=== PATIENT | female | born 1960 | race Two or more races ===

== ENCOUNTER 2024-09-04 15:28 | Emergency (ER) | payer BC ==
[~2024-09-04] VITALS: Ht 165.1 cm; Wt 104.3 kg
== END 2024-09-04 19:55 | disposition home or self-care (01) ==
LOC: ER 15:30
DX: S82.491A Other fracture of shaft of right fibula, initial encounter for closed fracture (principal); W19.XXXA Unspecified fall, initial encounter; Y93.89 Activity, other specified; Y92.89 Other specified places as the place of occurrence of the external cause; Y99.8 Other external cause status

== ENCOUNTER 2024-09-06 14:59 | Emergency (ER) | payer BC ==
[~2024-09-06] VITALS: Ht 165.1 cm; Wt 104.3 kg
[2024-09-06 15:15] VITALS: BP 117/60; O2SAT 96
[2024-09-06] MEDS ORDERED: PROSAC (15:15)
== END 2024-09-06 17:22 | disposition home or self-care (01) ==
LOC: ER 15:02
DX: M25.571 Pain in right ankle and joints of right foot (principal)